=== PATIENT | male | born 1940 | race Caucasian/White ===

== ENCOUNTER → 2018-06-29 14:36 | Outpatient (CLI) | payer MEDICARE, SELFPAY ==
--- NOTE | 2018-06-29 14:49 | BD_ITS ---
STUDY: DUAL ENERGY X-RAY ABSORPTIOMETRY / DXA REASON FOR EXAM: Male, 78 years old. Loss of height. Vitamin D deficiency. TECHNIQUE: Bone Mineral Density (BMD) measurements of lumbar spine and bilateral hips were obtained. COMPARISON: Comparison is made with prior study dated April 25, 2010. FINDINGS: Lumbar Spine (L1-L4): g/cm2 (1.050) / T-score (-1.4) / Z-score (-0.8) Findings are suggestive of osteopenia with a moderate fracture risk. Increased thoracic kyphosis. Left Femur Total: g/cm2 (0.884) / T-score (-1.5) / Z-score (-0.6) Left Femoral Neck: g/cm2 (0.806) / T-score (-2.0) / Z-score (-0.6) Right Femur Total: g/cm2 (0.826) / T-score (-1.9) / Z-score (-1.0) Right Femoral Neck: g/cm2 (0.792) / T-score (-2.1) / Z-score (-0.7) The T-Scores on the most recent prior examination were: Lumbar Spine (L1-L4): There has been worsening of bone density since the previous examination. Left Femur Total: which represents a worsening of 9.2%. Right Femur Total: which represents a worsening of 17.3%. BD/Dexa Bone Density Study IMPRESSION: The patient is considered osteopenic as outlined below according to World [place] Organization (WHO) criteria with a moderate fracture risk. There has been worsening of bone density since the previous examination. Reference Information: The T-score is the number of standard deviations above or below the standard which is normal for young adults at their peak bone mineral density. The World Health Organization (WHO) interprets the T-scores as follows: Above -1 Normal bone density Between -1 and -2.5 Osteopenia Equal to / or below -2.5 Osteoporosis As a practical clinical guideline, osteopenia may be graded as follows: Mild -1 through -1.5 Moderate -1.6 through -2.0 Severe -2.1 through -2.4 The Z-score is the number of standard deviations above or below age-matched controls. A Z-score of less than -1.5 would be considered abnormal. References: 1. NIH Osteoporosis and Related Bone Diseases http://www.osteo.org 2. International Society for Clinical Densitometry http://www.iscd.org 3. National Osteoporosis Foundation http://www.nof.org Electronically Signed: Carlos Laura MD at 15:24 EDT Tel [phone], Service support ,
== END ==
PROVIDERS: Family Provider Family Medicine Geriatric Medicine; PCP Family Medicine Geriatric Medicine; Visit Provider Internal Medicine
DX: M85.89 Other specified disorders of bone density and structure, multiple sites (principal)
CPT/HCPCS: 77080

== ENCOUNTER 2023-01-22 16:38 | Inpatient (IN) | payer MEDICARE, SELFPAY ==
[2023-01-22 16:38] VITALS: BP 96/57; PULSE 59; RESP 16; TEMP 36.7; O2SAT 100; BMI 21.2
[2023-01-22] MEDS: 0.9% Normal Saline 1,000 ML 1000 ML IV (17:11)
[2023-01-22 17:48] LABS: Absolute Lymphocyte Count 0.18 X10^3/uL (0.83-4.51); Absolute Neutrophil Count 10.1 X10^3/uL (2.0-7.7); Basophil# 0.03 X10^3/uL; Basophil% 0.3 % (0-1); Hematocrit 39.8 % (40-54); Hemoglobin 13.1 g/dL (13.0-16.5); Lymphocyte # 0.18 X10^3/ul (0.83-4.51); Lymphocyte % 1.7 % (19-41); Mean Corp Hgb Conc 32.9 g/dL (32-36); Mean Corpuscular Hgb 32.1 pg (27.0-32.0); Mean Corpuscular Volume 97.5 fL (80-94); Mean Platelet Vol. 9.3 fl (6.2-12.0); Monocyte# 0.45 X10^3/uL; Monocyte% 4.2 % (0-10); NRBC Flagged by Analyzer 0 % (0-5); Neutrophil # 10.12 X10^3/uL (2.7-7.7); Neutrophil % 93.3 % (47-70); POSITIVE DIFFERENTIAL YES; Platelet Count 168 K/mm3 (150-450); RBC Distribution Width CV 13.2 % (11.6-14.6); RBC Distribution Width SD 46.4 fl (35.1-43.9); Red Blood Count 4.08 M/mm3 (4.6-6.2); White Blood Count 10.8 K/mm3 (4.4-11.0)
--- NOTE | 2023-01-22 18:31 | ED.VIS.GI ---
HPI HPI - GI History of Present Illness Chief Complaint: Abd Pain Narrative Narrative: 82-year-old male presenting with abdominal pain which started last evening. He states he felt it around his umbilical region. He states he felt like he was going to vomit but did not. Patient reports that he walked downstairs and felt to go to his right lower quadrant. He still has not vomited. He denies fever or chills. He denies constipation or diarrhea. No urinary complaints. Patient states that currently has no pain. Patient has not had any abdominal surgeries in the past. He does report that he had a hernia before. PFSH PFS Medical History no medical history Home Medications NK 01/22/23 [History Last Taken Unknown] Allergy/AdvReac Type Severity Reaction Status Date / Time No Known Allergies Allergy Verified 01/22/23 16:41 Social History (Updated 01/22/23 @ 22:[address] Thomas Stover MD) Smoking Status: Never smoker ROS ROS ED Constitutional Constitutional ED: Denies chills, fever(s) or subjective ENT ENT ED: Denies rhinorrhea or sore throat Cardiovascular Cardiovascular: Denies chest pain or palpitations Respiratory/Chest Respiratory/Chest: Denies cough or dyspnea Gastrointestinal Gastrointestinal: Reports abdominal pain and nausea; Denies constipation or diarrhea Genitourinary Genitourinary ED: Denies dysuria or hematuria Musculoskeletal Musculoskeletal: Denies arthralgias or back pain Integumentary Denies abscess or Abrasions Neurologic Neurologic: Denies headache(s) Psychiatric Psychiatric: Denies anxiety or depression Endocrine Endocrinology: Denies polydipsia EXAM Physical Exam Const Vital Signs: 01/22/23 16:38 01/22/23 21:09 Temperature 98.1 F Temperature Source Temporal Pulse Rate 59 L 53 L Respiratory Rate 16 16 Blood Pressure 96/57 L 115/51 L Blood Pressure Mean 70 72 Pulse Ox 100 99 Oxygen Delivery Method Room Air Room Air Positive unkempt General Appearance ED: unkempt and NAD; Negative for pallor HEENT Reports moist mucous membranes normocephalic and atraumatic Eyes PERRL and EOMs intact bilaterally Resp normal respiratory effort and clear to auscultation bilaterally GI non-tender, non-distended and no masses Palpation: soft Back/Spine no CVA tenderness Neuro CN's II-XII intact bilaterally and moves all extremities Sensorium / Orientation: alert Motor Exam: strength 5/5 throughout Psych mental status grossly normal and thought process normal Appearance: unkempt Skin no wounds General Skin Exam: Negative for jaundice or pallor MDM MDM MDM Narrative Medical decision making narrative: Patient presenting with abdominal pain and nausea however his abdominal pain and nausea have resolved. He was sent here from the urgent care for evaluation. Differential includes urinary tract infection, kidney stone, colitis, diverticulitis, bowel obstruction, appendicitis. Screening lab work will be obtained. CBC to assess white blood cell count, hemoglobin, platelets, differential. CMP to assess liver function, renal function, glucose, anion gap. Urinalysis to assess for UTI or hematuria. Patient is given a liter of normal saline. He declines analgesia or antiemetics. He is currently pain-free and has no nausea. CBC shows normal white blood cell count. Hemoglobin hematocrit are stable. Platelets are normal. Renal function and electrolytes unremarkable. Patient's total bilirubin is elevated 1.20, AST 415, ALT 301, lipase greater than 5000 urinalysis negative for infection. Clinically the picture looks like a gallstone pancreatitis however the patient is pain-free I did obtain a right upper quadrant ultrasound which does not show any gallstones does not show any dilated ducts or signs of cholecystitis or cholelithiasis. Discussed with Dr. Downing who recommended medicine admit and MRCP as well as repeat lab work. It does sound as if he possibly could have passed a stone. Patient has been pain-free the whole time has been here. Patient admitted to the hospitalist in stable condition. Impression: 1. Abdominal pain 2. Choledocholithiasis Lab Data Labs: Laboratory Results - last 24 hr 01/22/23 01/22/23 01/22/23 17:00 17:00 19:23 WBC 10.8 RBC 4.08 L Hgb 13.1 Hct 39.8 L MCV 97.5 H MCH 32.1 H MCHC 32.9 RDW Std Deviation 46.4 H RDW Coeff of Manan 13.2 Plt Count 168 MPV 9.3 Immature Gran % (Auto) 0.500 Neut % (Auto) 93.3 H Lymph % (Auto) 1.7 L [place] % (Auto) 4.2 Eos % (Auto) 0.0 Baso % (Auto) 0.3 Absolute Neuts (auto) 10.1 H Absolute Lymphs (auto) 0.18 L Nucleated RBC % 0 Differential Comment SEE COMMENT Platelet Estimate ADEQUATE RBC Morphology N CHROM Anisocytosis RARE Macrocytosis RARE Sodium 139 Potassium 4.3 Chloride 106 Carbon Dioxide 29.0 Anion Gap 4 L BUN 21 H Creatinine 0.84 Estim Creat Clear Calc 59.17 Est GFR (MDRD) Af Amer 113 Est GFR (MDRD) Non-Af 94 BUN/Creatinine Ratio 25.1 H Glucose 158 H Calcium 8.8 Total Bilirubin 1.20 H AST 415 H ALT 301 H Alkaline Phosphatase 110 Total Protein 6.8 Albumin 3.7 Globulin 3.1 Albumin/Globulin Ratio 1.2 Lipase > 5000 H Urine Color Yellow Urine Clarity Clear Urine pH 7.0 Ur Specific [place] 1.005 Urine Protein 15 H Urine Glucose (UA) Normal Urine Ketones Negative Urine Occult Blood Negative Urine Nitrite Negative Urine Bilirubin Negative Urine Urobilinogen 1 H Ur Leukocyte Esterase Negative Urine RBC 0 SEEN Urine WBC 0 SEEN Ur Squamous Epith Cells 0 SEEN Urine Bacteria 0 SEEN Urine Mucus 0 SEEN Radiography Diagnostic Testing: Clinical Impression(s) from Imaging Studies Gallbladder Ultrasound 01/22/23 19:19 IMPRESSION: There is an echogenic nodule in the right lobe of the liver. CT with IV is recommended to further evaluate. Note: Renal size measurements and size measurements of other organs etc may vary depending on modality and foot press operator dependent variations in measurements. (i.e. Measuring a kidney on an US does not correlate with an exact same measurement on a CT.) Electronically Signed: Mk Abreu MD at 20:35 EDT , Discharge Plan Triage Chief Complaint: Abd Pain ED Provider: Nazario Buck Dx/Rx/DC Orders Primary Care Provider: Espinoza Gottlieb Chi
[2023-01-22 18:36] LABS: Differential Indicated SCAN CRITERIA MET
[2023-01-22 18:37] LABS: Platelet Estimate ADEQUATE (ADEQ); Red Cell Morphology N CHROM NORMAL (NORM C&C)
[2023-01-22 18:38] LABS: Anisocytosis RARE; Macrocytosis RARE
[2023-01-22] MEDS: 0.9% Normal Saline 1,000 ML 999 ML IV (18:53)
[2023-01-22 19:11] LABS: ALB/GLOB Ratio 1.2 RATIO (0.9-2.4); AST(SGOT) 415 U/L (15-37); Alanine Aminotransfer ALT/SGPT 301 U/L (16-61); Albumin, Serum 3.7 g/dL (3.2-5.0); Alkaline Phosphatase 110 U/L (45-117); Anion Gap 4 (5-15); BUN 21 mg/dL (7-18); BUN/Creat Ratio 25.1 RATIO (10-20); Calcium,Total 8.8 mg/dL (8.5-10.1); Chloride 106 mmol/L (98-107); Creatinine, Serum 0.84 mg/dL (0.70-1.30); EST Glomerular Filtration Rate 94 mL/min (>60); Est Glom Filt Rate - Afr Amer 113 mL/min (>60); Estimated Creatinine Clearance 59.17 ml/min; Globulin 3.1 g/dL (2.2-4.2); Glucose 158 mg/dL (74-106); Lipase > 5000 U/L (13-75); Potassium 4.3 mmol/L (3.5-5.1); Protein, Total 6.8 g/dL (6.4-8.2); Sodium Level 139 mmol/L (136-145)
--- NOTE | 2023-01-22 19:19 | US_ITS ---
STUDY: ABDOMINAL ULTRASOUND - RIGHT UPPER QUADRANT REASON FOR VISIT: Male, 82 years old. ABDOMEN PAIN abdominal pain TECHNIQUE: Ultrasound evaluation of the right upper quadrant was performed with real-time and static de anda-scale imaging. TECHNICAL QUALITY: Adequate. COMPARISON: None FINDINGS: Liver: There is normal echogenicity of the liver. The bile ducts are within normal limits. There is hepatic color flow. The direction of portal flow is hepatopetal. There is an echogenic nodule in the right lobe of the liver measures 18mm. Gallbladder: Normal distended gallbladder. The gallbladder wall measures 1.6 mm. There is a negative sonographic Lu''s sign. There is no pericholecystic fluid. There are no gallstones. Common Bile Duct (C.B.D.): The common bile duct measures ( in mm): 6.4 Pancreas: Normal size of the head, body of the pancreas. There is normal echogenicity of the pancreas. There is no demonstrated pancreatic mass or cyst. Right Kidney: Normal size of the right kidney. The right kidney measures 9.2 cm. . Normal renal cortex. There is no demonstrated renal mass or cyst. There is an extra-renal pelvis of the right kidney. There is no distention of the renal calyces. Aorta: It is not visualized. There is too much overlying bowel gas. . US/Gallbladder IMPRESSION: There is an echogenic nodule in the right lobe of the liver. CT with IV is recommended to further evaluate. Note: Renal size measurements and size measurements of other organs etc may vary depending on modality and cage operator dependent variations in measurements. (i.e. Measuring a kidney on an US does not correlate with an exact same measurement on a CT.) Electronically Signed: Mk Abreu MD at 20:35 EDT ,
--- NOTE | 2023-01-22 19:27 | ED.RN ---
hospice called and made aware of patient at this time. chart faxed at this time. they will attempt to send some one over if they can to see patient. Dr. De La Torre made aware and spoke to hospice
[2023-01-22 19:29] LABS: Bacteria 0 SEEN /hpf (None Seen); Mucous, Urine 0 SEEN /hpf (<or=2+); Red Blood Cells-Urine 0 SEEN /hpf (0-5); Squamous Epithelial Cells - UA 0 SEEN /hpf (0-5); White Blood Cells 0 SEEN /hpf (0-5)
[2023-01-22 19:30] LABS: Glucose, Dipstick Normal (Normal); Ketone-Dipstick Negative (Negative); Leukocyte Esterase-Dipstick Negative /ul (Negative); Nitrite-Dipstick Negative (Negative); Occult Blood-Urine Negative /ul (Negative); Protein-Dipstick 15 mg/dl (Negative); Specific Gravity, Urine 1.005 (1.002-1.030); Urine Bilirubin Dipstick Negative (Negative); Urine Urobilinogen 1 mg/dl (Normal)
--- NOTE | 2023-01-22 19:34 | CM.ED ---
Social Work SW introduced self and role. SW discussed advance directives with patient and sister, Claudette Lu. Patient reports he would like to have his sister be his HCPOA and requested to complete paperwork today. SW assisted patient in completing Healthcare Power of Facility Service Manager and Living Will documents. Copies and original given to patient and copy placed with chart to be scanned into medical record. Batsheva Reyez [employer]
[2023-01-22 19:36] LABS: Color, Urine Yellow (Yellow); Urine Clarity Clear (Clear)
[2023-01-22 21:09] VITALS: BP 115/51; PULSE 53; RESP 16; O2SAT 99
--- NOTE | 2023-01-22 22:02 | PCM.HP.STD ---
HPI - General General Date of Admission: 01/22/23 Date of Service: 01/22/23 Chief Complaint: Abdominal pain HPI Narrative DENNISE NUNEZ, is a 82 M with no significant medical history who presents emergency department with abdominal pain that started a day before presentation. History was difficult to obtain as patient is extremely hard of hearing. His abdominal pain was initially periumbilical but is localized to the right lower quadrant. His pain started a day before presentation. Associated with symptom is nausea. His nausea and abdominal pain improved. [facility] Medical History no medical history no medical history Home Medications NK 01/22/23 [History Last Taken Unknown] Allergy/AdvReac Type Severity Reaction Status Date / Time No Known Allergies Allergy Verified 01/22/23 16:41 Family History unable to obtain unable to obtain Surgical History (Updated 01/23/23 @ 00:00 by Delmis Ayers) History of tonsillectomy Surgical History no surgical history no surgical history Social History (Updated 01/22/23 @ 22:[address] Thomas Stover MD) Smoking Status: Never smoker ROS ROS Narrative Pertinent positives and pertinent negatives as noted in HPI. All other systems were reviewed and are negative Vital Signs Vital Signs Vital Signs: 01/22/23 16:38 01/22/23 21:09 Temperature 98.1 F Temperature Source Temporal Pulse Rate 59 L 53 L Respiratory Rate 16 16 Blood Pressure 96/57 L 115/51 L Blood Pressure Mean 70 72 Pulse Ox 100 99 Oxygen Delivery Method Room Air Room Air Weight Weight: 59.647 kg Body Mass Index (BMI) 21.2 Physical Exam Narrative Physical exam: General: Well-nourished, well-developed. Head: Normocephalic, atraumatic, no tenderness Eyes: Vision is grossly intact. EOMI ENT, no trauma, moist mucous membranes, no rhinorrhea Neck: Nontender, No thyromegaly. CVS: Regular rate and rhythm. S1-S2 present. No murmur, gallop or rub. Respiratory : clear to auscultation bilaterally, chest wall nontender Abdomen: Soft, nontender, nondistended, normal bowel sounds, no masses : Deferred Back: Nontender, no CVA tenderness, no midline spinal tenderness, deformities, step-offs Extremities: Nontender full range of motion, no trauma Skin: Normal color, no trauma, abrasions Neuro: Alert, oriented, cranial nerves II through XII grossly intact. Psychiatry: Normal mood. Normal affect. Not depressed. Not anxious. Results Lab / Micro Data Result Diagrams: 01/22/23 17:00 01/22/23 17:00 Labs: Laboratory Results - last 24 hr 01/22/23 17:00: WBC 10.8, RBC 4.08 L, Hgb 13.1, Hct 39.8 L, MCV 97.5 H, MCH 32.1 H, MCHC 32.9, RDW Std Deviation 46.4 H, RDW Coeff of Manan 13.2, Plt Count 168, MPV 9.3, Immature Gran % (Auto) 0.500, Neut % (Auto) 93.3 H, Lymph % (Auto) 1.7 L, [place] % (Auto) 4.2, Eos % (Auto) 0.0, Baso % (Auto) 0.3, Absolute Neuts (auto) 10.1 H, Absolute Lymphs (auto) 0.18 L, Nucleated RBC % 0, Differential Comment SEE COMMENT, Platelet Estimate ADEQUATE, RBC Morphology N CHROM, Anisocytosis RARE, Macrocytosis RARE 01/22/23 17:00: Sodium 139, Potassium 4.3, Chloride 106, Carbon Dioxide 29.0, Anion Gap 4 L, BUN 21 H, Creatinine 0.84, Estim Creat Clear Calc 59.17, Est GFR (MDRD) Af Amer 113, Est GFR (MDRD) Non-Af 94, BUN/Creatinine Ratio 25.1 H, Glucose 158 H, Calcium 8.8, Total Bilirubin 1.20 H, AST 415 H, ALT 301 H, Alkaline Phosphatase 110, Total Protein 6.8, Albumin 3.7, Globulin 3.1, Albumin/Globulin Ratio 1.2, Lipase > 5000 H 01/22/23 19:23: Urine Color Yellow, Urine Clarity Clear, Urine pH 7.0, Ur Specific [place] 1.005, Urine Protein 15 H, Urine Glucose (UA) Normal, Urine Ketones Negative, Urine Occult Blood Negative, Urine Nitrite Negative, Urine Bilirubin Negative, Urine Urobilinogen 1 H, Ur Leukocyte Esterase Negative, Urine RBC 0 SEEN, Urine WBC 0 SEEN, Ur Squamous Epith Cells 0 SEEN, Urine Bacteria 0 SEEN, Urine Mucus 0 SEEN Radiology Impression Gallbladder Ultrasound 01/22/23 19:19 IMPRESSION: There is an echogenic nodule in the right lobe of the liver. CT with IV is recommended to further evaluate. Note: Renal size measurements and size measurements of other organs etc may vary depending on modality and oil heater operator dependent variations in measurements. (i.e. Measuring a kidney on an US does not correlate with an exact same measurement on a CT.) Electronically Signed: Mk Abreu MD at 20:35 EDT , Assessment & Plan Assessment/Plan (1) Pancreatitis, gallstone: PLAN: Plan Acute pancreatitis Lipase level: More than 5000 Elevated AST and ALT and total bilirubin with alkaline phosphatase high normal. Lactated Ringer's at 125 MLS per hour ordered. Cautious use of fluids in the setting of patient's age Patient has not required pain medications Clear liquids ordered. Per recommendation from general surgery detailed to ED doctor will order MRCP. General surgery consult. Ultrasound gallbladder showed echogenic nodule in the right lobe of the liver and for which CT with IV was recommended for further evaluation. With ordered MRCP we will await for results before CT consideration Check acute hepatitis panel. Trend CMP. Total clinical time spent by myself addressing the patient's medical issues, reviewing all the data, and collaborating with the patient's care team: 35 minutes Charges/Coding Visit Charges Inpatient E&M: 92291 Init Hosp L2
[2023-01-22 22:27] VITALS: BP 103/68; PULSE 81; RESP 12; TEMP 36.1; O2SAT 99
[2023-01-22 23:37] VITALS: BP 103/48; PULSE 53; RESP 18; TEMP 36.6; O2SAT 94; BMI 103.3
[2023-01-23] MEDS: Lactated Ringers 1,000 ML 125 ML IV ×2 (00:23→08:31)
[2023-01-23 04:30] VITALS: BP 105/39; PULSE 51; RESP 18; TEMP 36.8; O2SAT 95
--- NOTE | 2023-01-23 06:00 | MRI_ITS ---
HISTORY: Biliary stone- Pt VERY hard of hearing!. TECHNIQUE: Multiplanar and multisequence MR images of the abdomen were obtained with MRCP sequence. Three-dimensional post-processing reconstructions were performed. IV Contrast Dosage and Agent: None. 300 images. COMPARISON: US prior day. FINDINGS: Motion artifact lowers the sensitivity of examination. LOWER CHEST: No pleural effusion. LIVER: 2.2 x 2.5 cm homogeneously mildly T2 hyperintense and circumscribed lesion in segment 7. GALLBLADDER AND BILIARY TREE: Mild gallbladder wall thickening and edema without gallstones. Possible mild sludge versus artifact. Common bile duct nondilated at 5 mm in diameter. No intrahepatic biliary dilation. No choledochal filling defect. PANCREAS: Homogeneous without peripancreatic inflammation. No pancreatic duct dilation. SPLEEN: Homogeneous and nonenlarged. KIDNEYS/ADRENAL GLANDS: Unremarkable. PERITONEUM: Trace perihepatic free fluid VESSELS: Abdominal aorta nondilated. MRI/MRCP Abdomen without Contrast IMPRESSION: 2.5 cm lesion in the right hepatic lobe, indeterminate for benign lesion or neoplasm on noncontrast examination. Recommend follow-up postcontrast imaging. Gallbladder wall edema and mild perihepatic ascites. Possible mild biliary sludge versus artifact. No evidence of cholelithiasis, choledocholithiasis, or biliary ductal dilatation. Electronically Signed: Crystal Huff MD at 12:20 EDT ,
[2023-01-23 06:38] VITALS: BP 98/36
[2023-01-23 07:36] LABS: Absolute Lymphocyte Count 0.55 X10^3/uL (0.83-4.51); Basophil# 0.03 X10^3/uL; Basophil% 0.4 % (0-1); Eosinophil# 0.02 X10^3/uL; Eosinophils% 0.2 % (0-5); Hematocrit 33.7 % (40-54); Hemoglobin 10.9 g/dL (13.0-16.5); Lymphocyte # 0.55 X10^3/ul (0.83-4.51); Lymphocyte % 6.7 % (19-41); Mean Corp Hgb Conc 32.3 g/dL (32-36); Mean Corpuscular Hgb 32.4 pg (27.0-32.0); Mean Corpuscular Volume 100.3 fL (80-94); Mean Platelet Vol. 9.9 fl (6.2-12.0); Monocyte% 7.3 % (0-10); NRBC Flagged by Analyzer 0 % (0-5); Neutrophil # 7.01 X10^3/uL (2.7-7.7); POSITIVE DIFFERENTIAL YES; Platelet Count 138 K/mm3 (150-450); RBC Distribution Width CV 13.2 % (11.6-14.6); RBC Distribution Width SD 48.3 fl (35.1-43.9); Red Blood Count 3.36 M/mm3 (4.6-6.2); White Blood Count 8.2 K/mm3 (4.4-11.0)
[2023-01-23 07:42] LABS: Differential Indicated SCAN CRITERIA MET
[2023-01-23 08:07] LABS: ALB/GLOB Ratio 1.2 RATIO (0.9-2.4); AST(SGOT) 130 U/L (15-37); Alanine Aminotransfer ALT/SGPT 193 U/L (16-61); Albumin, Serum 2.9 g/dL (3.2-5.0); Alkaline Phosphatase 93 U/L (45-117); Anion Gap 4 (5-15); BUN 17 mg/dL (7-18); BUN/Creat Ratio 24.5 RATIO (10-20); Calcium,Total 8.3 mg/dL (8.5-10.1); Chloride 113 mmol/L (98-107); Creatinine, Serum 0.69 mg/dL (0.70-1.30); EST Glomerular Filtration Rate 116 mL/min (>60); Est Glom Filt Rate - Afr Amer 141 mL/min (>60); Estimated Creatinine Clearance 50.01 ml/min; Globulin 2.4 g/dL (2.2-4.2); Glucose 75 mg/dL (74-106); Potassium 3.7 mmol/L (3.5-5.1); Protein, Total 5.3 g/dL (6.4-8.2); Sodium Level 143 mmol/L (136-145)
[2023-01-23 08:21] VITALS: BP 90/46; PULSE 54; RESP 16; TEMP 36.7; O2SAT 97
--- NOTE | 2023-01-23 08:27 | CON.PCM.SX_ITS ---
Assessment & Plan Assessment/Plan (1) Pancreatitis, gallstone: PLAN: Patient was admitted with possible gallstone pancreatitis with the patient has no gallstones. Repeat LFTs are decreasing. I recommend MRCP. If MRCP is normal patient can be discharged home. Unsure as to etiology if there are no gallstones. Nilton Devlin MD Pager: [facility] [address] [place] [address], [address] [place] [address] Office: HPI Consult Data Date of Consult: 01/23/23 HPI Narrative HPI Narrative: DENNISE NUNEZ, is a 82 M who presents with abdominal pain. Patient presented with abdominal pain that resolved during his ER visit. Patient was found to have elevated lipase and elevated LFTs. Patient now reports no abdominal pain or nausea or vomiting. He is very comfortable with no symptoms at this time. [facility] Medical History no medical history Home Medications NK 01/22/23 [History Last Taken Unknown] Allergy/AdvReac Type Severity Reaction Status Date / Time No Known Allergies Allergy Verified 01/22/23 16:41 Family History unable to obtain Surgical History (Updated 01/23/23 @ 00:00 by Delmis Ayers) History of tonsillectomy Surgical History no surgical history Social History (Updated 01/22/23 @ 22:[address] Thomas Stover MD) Smoking Status: Never smoker ROS Constitutional Constitutional: Denies anorexia, chills or fatigue Eyes Eyes: Denies blurry vision ENT HEENT: Denies abnormal hearing Cardiovascular Cardiovascular: Denies chest pain Respiratory/Chest Respiratory/Chest: Denies cough or dyspnea Gastrointestinal Gastrointestinal: Reports abdominal pain; Denies coffee ground emesis, nausea or vomiting Genitourinary Genitourinary: Denies change in urinary stream or flank pain Musculoskeletal Musculoskeletal: Denies abnormal gait Integumentary Integumentary: Denies new lesions Neurologic Neurologic: Denies abnormal gait Psychiatric Psychiatric: Denies anxiety or depression Hematologic/Lymphatic Hematologic/Lymphatic: Denies easy bleeding Physical Exam Const alert and oriented x3 HEENT normocephalic Eyes PERRL Resp normal respiratory effort Cardio Rate: regular rate Rhythm: regular rhythm GI normal to inspection, nondistended, normoactive bowel sounds Lab / Micro Data Result Diagrams: 01/23/23 06:35 05/12/23 06:35 Labs: Laboratory Results - last 24 hr 01/22/23 17:00: WBC 10.8, RBC 4.08 L, Hgb 13.1, Hct 39.8 L, MCV 97.5 H, MCH 32.1 H, MCHC 32.9, RDW Std Deviation 46.4 H, RDW Coeff of Manan 13.2, Plt Count 168, MPV 9.3, Immature Gran % (Auto) 0.500, Neut % (Auto) 93.3 H, Lymph % (Auto) 1.7 L, [place] % (Auto) 4.2, Eos % (Auto) 0.0, Baso % (Auto) 0.3, Absolute Neuts (auto) 10.1 H, Absolute Lymphs (auto) 0.18 L, Nucleated RBC % 0, Differential Comment SEE COMMENT, Platelet Estimate ADEQUATE, RBC Morphology N CHROM, Anisocytosis RARE, Macrocytosis RARE 01/22/23 17:00: Sodium 139, Potassium 4.3, Chloride 106, Carbon Dioxide 29.0, Anion Gap 4 L, BUN 21 H, Creatinine 0.84, Estim Creat Clear Calc 59.17, Est GFR (MDRD) Af Amer 113, Est GFR (MDRD) Non-Af 94, BUN/Creatinine Ratio 25.1 H, Glucose 158 H, Calcium 8.8, Total Bilirubin 1.20 H, AST 415 H, ALT 301 H, Alkaline Phosphatase 110, Total Protein 6.8, Albumin 3.7, Globulin 3.1, Albumin/Globulin Ratio 1.2, Lipase > 5000 H 01/22/23 19:23: Urine Color Yellow, Urine Clarity Clear, Urine pH 7.0, Ur Specific [place] 1.005, Urine Protein 15 H, Urine Glucose (UA) Normal, Urine Ketones Negative, Urine Occult Blood Negative, Urine Nitrite Negative, Urine Bilirubin Negative, Urine Urobilinogen 1 H, Ur Leukocyte Esterase Negative, Urine RBC 0 SEEN, Urine WBC 0 SEEN, Ur Squamous Epith Cells 0 SEEN, Urine Bacteria 0 SEEN, Urine Mucus 0 SEEN 01/23/23 06:35: WBC 8.2, RBC 3.36 L, Hgb 10.9 L, Hct 33.7 L, MCV 100.3 H, MCH 32.4 H, MCHC 32.3, RDW Std Deviation 48.3 H, RDW Coeff of Manan 13.2, Plt Count 138 L, MPV 9.9, Immature Gran % (Auto) 0.400, Neut % (Auto) 85.0 H, Lymph % (Auto) 6.7 L, [place] % (Auto) 7.3, Eos % (Auto) 0.2, Baso % (Auto) 0.4, Absolute Neuts (auto) 7.0, Absolute Lymphs (auto) 0.55 L, Nucleated RBC % 0 01/23/23 06:35: Sodium 143, Potassium 3.7, Chloride 113 H, Carbon Dioxide 26.0, Anion Gap 4 L, BUN 17, Creatinine 0.69 L, Estim Creat Clear Calc 50.01, Est GFR (MDRD) Af Amer 141, Est GFR (MDRD) Non-Af 116, BUN/Creatinine Ratio 24.5 H, Glucose 75, Calcium 8.3 L, Total Bilirubin 0.70, AST 130 H, ALT 193 H, Alkaline Phosphatase 93, Total Protein 5.3 L, Albumin 2.9 L, Globulin 2.4, Albumin/Globulin Ratio 1.2 Radiology Impression Gallbladder Ultrasound 01/22/23 19:19 IMPRESSION: There is an echogenic nodule in the right lobe of the liver. CT with IV is recommended to further evaluate. Note: Renal size measurements and size measurements of other organs etc may vary depending on modality and drying frame operator dependent variations in measurements. (i.e. Measuring a kidney on an US does not correlate with an exact same measurement on a CT.) Electronically Signed: Mk Abreu MD at 20:35 EDT ,
[2023-01-23 08:30] VITALS: O2SAT 96
--- NOTE | 2023-01-23 11:00 | CASEMGMT ---
RN?CM?INTERIOR DESIGN FACULTY MEMBER?CM?to room to meet with patient for initial transition planning/care coordination?assessment.?RN?CM?introduced self and role at [facility].? Pt voices understanding and consents to?assessment?at this time.? Pt resting in bed in no distress at this time.? Sister/Claudette WOLF, is at bedside. Pt is A/O at this time and answers all questions appropriately.?? Care providers, pharmacy, and demographics verified/updated at this time. PCP: Dr Gottlieb is listed in [facility] as being pt's PCP, but pt states he does not see Dr Gottlieb. He reports he sees a PCP @ [facility] in [place], but does not remember his name. He state he has not been in to see him for about 2-3 yrs, though, d/t COVID. Mindy, MS3 RN CM, made aware. Specialists: none Preferred Pharmacy: [facility] Insurance: [facility] A/B Prescription Benefit: None? Living Will/HPOA:?Pt completed AD last PM w/[facility] SW and pt's sister, Claudette, is his HCPOA. LNOK: Sister/Claudette WOLF Living Arrangements: Lives alone in 2-story home w/1 step to enter. Indep w/ADL's and IADL's. Transportation:?Pt drives. Sister will take him home @ D/C DME: ? Denies using any DME and denies needs.? HHC/SNF: No hx of either. Denies need for HHC and no needs identified. 6-clicks is 24, indicating pt is safe to discharge home alone. Pt wishes to return home and states has no concerns with going home at time of discharge.? CM?to follow for any further discharge planning/needs.? Pt and sister voice no concerns/needs at this time.? Advised pt and sister to ask for?CM?if any questions/concerns/needs arise.? They voice understanding. PLAN:??Home. Nereyda NÚÑEZN?RN?CM
--- NOTE | 2023-01-23 11:54 | DCINST_ITS ---
Discharge Instructions Diet Discharge Diet: No restrictions Activity Discharge Activity: Return to Normal Activity Weight Bearing Status: Full weight bearing Follow Up Care Test Results: Test results from this visit will be discussed in further detail at your follow- up appointment, if applicable. Discharge Plan Admission Admit Date/Time: 01/22/23 21:56 Primary Reason for Your Visit: pancreatitis Attending Provider: Danielito Owens Primary Care Provider: Espinoza Gottlieb Chi Consulting Providers: Nilton Devlin ; Thomas Stover Discharge Orders/Prescriptions Prescriptions: No Action NK Referrals / Follow Up: Espinoza Gottlieb Chi, MD [Primary Care Provider] - Within 2 Weeks Disposition Disposition (needs filled in before D/C Order can be placed): Home, Self Care
--- NOTE | 2023-01-23 12:46 | CASEMGMT ---
OWEN WALTON made tc to [facility], spoke with Latanya who states pt was dc'd from the practice since he hasn't been seen in 3 years. She states the physician who is accepting pts is . OWEN WALTON into pt room, made pt aware of the above. He is interested in setting up appt and states he and his will do on own. Physician name and number added to dc instructions.
--- NOTE | 2023-01-23 12:56 | CT_ITS ---
HISTORY: liver mass -- triple phase-abdomen. TECHNIQUE: Helically acquired images were obtained of the abdomen and pelvis before and after the intravenous administration of 100mL Isovue-370. Oral contrast also administered. A radiation dose optimization technique was used for this scan. 565 images. COMPARISON: MR same day, US prior day. FINDINGS: Motion artifact lowers the sensitivity of examination. LOWER CHEST: Mild dependent atelectasis with mild bilateral pleural effusions. BOWEL: Bowel nondilated. Appendix not well visualized. Moderate stool throughout the colon, mildly distending the rectum. PERITONEUM: Mild perihepatic ascites. Trace fluid in the pelvis. LIVER: Calcified granulomas. 2.1 x 2.4 cm hypoenhancing lesion in the right posterior lobe with mild peripheral enhancement. 7 mm cyst in the left medial lobe. GALLBLADDER/BILIARY TREE: 7 mm calcified gallstone with mild gallbladder wall thickening. SPLEEN: Calcified granulomas. PANCREAS/KIDNEYS/ADRENAL GLANDS: Unremarkable. VESSELS: No abdominal aortic aneurysm. Atherosclerosis of the abdominal aorta and its major branches appear PELVIC ORGANS: Unremarkable. ABDOMINAL WALL: Moderate right inguinal hernia containing cecum, small bowel, and free fluid with extension into the scrotum. Mild left inguinal hernia containing small bowel. BONES: Mild degenerative change and osteopenia. CT/CT Abd/Pelvis W/WO Contrast IMPRESSION: Anasarca with mild pleural effusions and mild ascites. Cholelithiasis with mild gallbladder wall edema from acute cholecystitis or generalized edema. Large right inguinal hernia containing cecum and small bowel without evidence for bowel obstruction. Appendix not well visualized. Right inguinal hernia extends into the scrotum with free fluid or hydrocele. Correlate with focal symptoms to assess for strangulation. Small left inguinal hernia containing small bowel without evidence for small bowel obstruction. Moderate stool throughout the colon with mild distention of the rectum. 2.4 cm indeterminate mass in the right hepatic lobe. Recommend follow-up. Small cyst in the left hepatic lobe. Electronically Signed: Crystal Huff MD at 15:31 EDT ,
--- NOTE | 2023-01-23 16:06 | PCM.DC ---
Discharge Instructions Diet Discharge Diet: No restrictions Activity Discharge Activity: Return to Normal Activity and May Not Drive Weight Bearing Status: Full weight bearing Follow Up Care Test Results: Test results from this visit will be discussed in further detail at your follow-up appointment, if applicable. Discharge Plan Admission Admit Date/Time: 01/22/23 21:56 Primary Reason for Your Visit: pancreatitis Attending Provider: Danielito Owens Primary Care Provider: Espinoza Gottlieb Chi Consulting Providers: Nilton Devlin ; Thomas Stover Discharge Orders/Prescriptions Prescriptions: No Action NK Referrals / Follow Up: Espinoza Gottlieb Chi, MD [Primary Care Provider] - Within 2 Weeks Emigdio Fuller MD [Med Staff - Injection Wax Molder] - See Referral Note (within 3 weeks) Nilton Devlin MD [Med Staff - Active Staff] - See Referral Note (as scheduled) Disposition Disposition (needs filled in before D/C Order can be placed): Home, Self Care
--- NOTE | 2023-01-23 16:14 | DS.PCM_ITS ---
Providers Date of Admission: 01/22/23 Date of Discharge: 01/23/23 Primary Care Physician: Dr. Espinoza Gottlieb MD Consultations 01/22/23 23:37 Consult: General Surgery Routine Consulting Provider: Nilton Devlin Reason for Consult: Gall Stone Pancreatitis EMERGENT Consult: No MD Notified: Yes Date Notified: 01/22/23 Time Notified: 22:00 Method of Notification: ED Physician Initiated Reason For Visit: ACUTE GALLSTONE PANCREATITIS Diagnosis Discharge Diagnosis (1) Pancreatitis, gallstone: Status: Acute Code(s): K85.10 - Biliary acute pancreatitis without necrosis or infection Plan 1. Acute gallstone pancreatitis #2 cholelithiasis #3 chronic cognitive impairment-probable dementia #4 acute anemia-etiology unclear #5 elevated liver enzymes-secondary to gallstone pancreatitis #6 solitary liver mass-etiology unclear Medications at Discharge Home Medications NK 01/22/23 Hospital Course Operations None Procedures None Summary of Care Provided Minutes Spent on Discharge: 32 Hospital Course: This 82-year-old white male was seen in the emergency room at [facility] with complaints of generalized abdominal pain around his umbilical region, patient complained of nausea, however by the time he got to the emergency room, his abdominal pain and nausea had resolved. Patient was sent in from urgent care for evaluation. Lab work was performed on the patient, white blood cell count was normal, bilirubin was elevated at 1.2, AST was elevated at 415, ALT was elevated at 301, and lipase was greater than 5000. A right upper quadrant abdominal ultrasound was obtained which did not show any gallstones and there was no evidence of dilated ducts or signs of cholecystitis or cholelithiasis. General surgery was contacted, they recommended admitting to the hospitalist service and obtaining an MRCP as well as repeat lab work. Patient was admitted to [place] [address] with a diagnosis of gallstone pancreatitis, he underwent an MRCP the following day which showed a solitary liver mass, there is no evidence of dilated ducts or ductal lithiasis. I then ordered a triple phase CT of the abdomen to try to identify the liver mass as a hemangioma, however, this was not able to be confirmed and I talked personally with the reading radiologist about the report, she stated that she was not able to identify w hether it was benign or potentially cancerous. She did say that the patient did have a solitary gallstone 7 mm in diameter. I talked at length with the patient's sister-patient has a history of chronic cognitive impairment-his sister thinks that it could be secondary to Alzheimer's disease. I told her about this liver mass and that we were not able to characterize it with imaging studies here and that the patient will have to undergo an MRI of the abdomen with contrast, this could be done in follow-up with his primary care physician, she stated that the patient had not seen his primary care physician approximately 3 years and they would have to reestablish as a new patient at the [facility]. I urged her to follow-up with a PCP there in the next 2 to 3 weeks regarding follow-up on this liver mass. I also talked with Dr. Devlin concerning the CT results indicating that the patient did have a gallstone, he stated he would follow-up with the patient in 1 to 2 weeks in the office and arrange for the patient to have his gallbladder taken out. I relayed this to the patient's sister. I also had a discussion with the patient's sister about the patient not being able to drive due to his cognitive impairment. I cautioned against allowing him to drive. On 01/23/2023, patient was seen and examined: On examination he appeared in good health and spirits. Vital signs as documented. Skin warm and dry and without overt rashes. Neck without JVD, neck was supple, trachea midline, thyroid was normal. Lungs clear bilaterally, normal air movement was noted. Heart exam notable for regular rhythm, normal sounds and absence of murmurs, rubs or gallops. Abdomen unremarkable and without evidence of organomegaly, masses, or abdominal aortic enlargement. Bowel sounds are present, abdomen is not distended. Extremities nonedematous, no cyanosis was noted, no clubbing was noted. Neuro: Cranial nerves II through XII are grossly intact, no focal motor deficits were noted, sensation to light touch and pinprick intact, motor exam 5/5 throughout. Psych: Patient is alert, patient shows signs of cognitive impairment, he is able to answer simple questions appropriately. Patient was discharged in stable condition on 01/23/2023. Weight / BMI Weight Weight: 60.01 kg Body Mass Index (BMI) 103.3 ABG / Lab / Microbiology Data Result Diagrams: 01/23/23 06:35 01/23/23 06:35 Laboratory: Laboratory Results - last 24 hr 01/22/23 17:00: WBC 10.8, RBC 4.08 L, Hgb 13.1, Hct 39.8 L, MCV 97.5 H, MCH 32.1 H, MCHC 32.9, RDW Std Deviation 46.4 H, RDW Coeff of Manan 13.2, Plt Count 168, MPV 9.3, Immature Gran % (Auto) 0.500, Neut % (Auto) 93.3 H, Lymph % (Auto) 1.7 L, [place] % (Auto) 4.2, Eos % (Auto) 0.0, Baso % (Auto) 0.3, Absolute Neuts (auto) 10.1 H, Absolute Lymphs (auto) 0.18 L, Nucleated RBC % 0, Differential Comment SEE COMMENT, Platelet Estimate ADEQUATE, RBC Morphology N CHROM, Anisocytosis RARE, Macrocytosis RARE 01/22/23 17:00: Sodium 139, Potassium 4.3, Chloride 106, Carbon Dioxide 29.0, Anion Gap 4 L, BUN 21 H, Creatinine 0.84, Estim Creat Clear Calc 59.17, Est GFR (MDRD) Af Amer 113, Est GFR (MDRD) Non-Af 94, BUN/Creatinine Ratio 25.1 H, Glucose 158 H, Calcium 8.8, Total Bilirubin 1.20 H, AST 415 H, ALT 301 H, Alkaline Phosphatase 110, Total Protein 6.8, Albumin 3.7, Globulin 3.1, Albumin/Globulin Ratio 1.2, Lipase > 5000 H 01/22/23 19:23: Urine Color Yellow, Urine Clarity Clear, Urine pH 7.0, Ur Specific Vesper 1.005, Urine Protein 15 H, Urine Glucose (UA) Normal, Urine Ketones Negative, Urine Occult Blood Negative, Urine Nitrite Negative, Urine Bilirubin Negative, Urine Urobilinogen 1 H, Ur Leukocyte Esterase Negative, Urine RBC 0 SEEN, Urine WBC 0 SEEN, Ur Squamous Epith Cells 0 SEEN, Urine Bacteria 0 SEEN, Urine Mucus 0 SEEN 01/23/23 06:35: WBC 8.2, RBC 3.36 L, Hgb 10.9 L, Hct 33.7 L, MCV 100.3 H, MCH 32.4 H, MCHC 32.3, RDW Std Deviation 48.3 H, RDW Coeff of Manan 13.2, Plt Count 138 L, MPV 9.9, Immature Gran % (Auto) 0.400, Neut % (Auto) 85.0 H, Lymph % (Auto) 6.7 L, [place] % (Auto) 7.3, Eos % (Auto) 0.2, Baso % (Auto) 0.4, Absolute Neuts (auto) 7.0, Absolute Lymphs (auto) 0.55 L, Nucleated RBC % 0 01/23/23 06:35: Sodium 143, Potassium 3.7, Chloride 113 H, Carbon Dioxide 26.0, Anion Gap 4 L, BUN 17, Creatinine 0.69 L, Estim Creat Clear Calc 50.01, Est GFR (MDRD) Af Amer 141, Est GFR (MDRD) Non-Af 116, BUN/Creatinine Ratio 24.5 H, Glucose 75, Calcium 8.3 L, Total Bilirubin 0.70, AST 130 H, ALT 193 H, Alkaline Phosphatase 93, Total Protein 5.3 L, Albumin 2.9 L, Globulin 2.4, Alb umin/Globulin Ratio 1.2 Radiography Diagnostic Testing: Radiology Impression Gallbladder Ultrasound 01/22/23 19:19 IMPRESSION: There is an echogenic nodule in the right lobe of the liver. CT with IV is recommended to further evaluate. Note: Renal size measurements and size measurements of other organs etc may vary depending on modality and minilab operator dependent variations in measurements. (i.e. Measuring a kidney on an US does not correlate with an exact same measurement on a CT.) Electronically Signed: Mk Abreu MD at 20:35 EDT , MRCP 01/23/23 06:00 IMPRESSION: 2.5 cm lesion in the right hepatic lobe, indeterminate for benign lesion or neoplasm on noncontrast examination. Recommend follow-up postcontrast imaging. Gallbladder wall edema and mild perihepatic ascites. Possible mild biliary sludge versus artifact. No evidence of cholelithiasis, choledocholithiasis, or biliary ductal dilatation. Electronically Signed: Crystal Huff MD at 12:20 EDT Reading Location ID and State: [facility] / [place] Tel , Service support , Abdomen/Pelvis CT 01/23/23 12:56 IMPRESSION: Anasarca with mild pleural effusions and mild ascites. Cholelithiasis with mild gallbladder wall edema from acute cholecystitis or generalized edema. Large right inguinal hernia containing cecum and small bowel without evidence for bowel obstruction. Appendix not well visualized. Right inguinal hernia extends into the scrotum with free fluid or hydrocele. Correlate with focal symptoms to assess for strangulation. Small left inguinal hernia containing small bowel without evidence for small bowel obstruction. Moderate stool throughout the colon with mild distention of the rectum. 2.4 cm indeterminate mass in the right hepatic lobe. Recommend follow-up. Small cyst in the left hepatic lobe. Electronically Signed: Crystal Huff MD at 15:31 EDT Reading Location ID and State: [facility] / [place] Tel , Service support , D/C Instructions Discharge Diet: No restrictions Weight Bearing Status: Full weight bearing Meaningful Use Info Meaningful Use Diagnoses (Choose all that apply): None applicable Discharge Plan Admission Admit Date/Time: 01/22/23 21:56 Primary Reason for Your Visit: pancreatitis Attending Provider: Danielito Owens Primary Care Provider: Espinoza Gottlieb Chi Consulting Providers: Nilton Devlin ; Thomas Stover Discharge Orders/Prescriptions Prescriptions: No Action NK Referrals / Follow Up: Nilton Devlin MD [Med Staff - Active Staff] - See Referral Note (as scheduled) Espinoza Gottlieb Chi, MD [Primary Care Provider] - Within 2 Weeks Emigdio Fuller MD [Med Staff - Sewing Department Supervisor] - See Referral Note (within 3 weeks) Disposition Disposition (needs filled in before D/C Order can be placed): Home, Self Care Charges/Coding Visit Charges Inpatient E&M: 61885 Subs Hosp L2
[2023-01-23 16:52] VITALS: BP 94/58; PULSE 58; RESP 18; TEMP 36.8; O2SAT 97
[2023-01-24 07:08] LABS: HEPATITIS B SURFACE AG Negative (Negative); Hep C Antibodies Non Reactive (Non Reactive); Hepatitis A IgM Antibody Negative (Negative); Hepatitis B Core AB IgM Negative (Negative)
== END 2023-01-23 17:03 | disposition home or self-care (01) | DRG 440 ==
LOC: ED 21:58 → MS3 22:31
PROVIDERS: Admitting Provider Hospitalist; Emergency Provider Student in an Organized Health Care Education/Training Program; PCP Family Medicine Geriatric Medicine; Visit Provider Internal Medicine
DX: K85.10 Biliary acute pancreatitis without necrosis or infection (principal); K80.70 Calculus of gallbladder and bile duct without cholecystitis without obstruction; F03.90 Unspecified dementia, unspecified severity, without behavioral disturbance, psychotic disturbance, mood disturbance, and anxiety; K76.89 Other specified diseases of liver; D64.9 Anemia, unspecified; R16.0 Hepatomegaly, not elsewhere classified
CPT/HCPCS: 36415; 74178; 74181; 76705; 80053; 80074; 81001; 83690; 85025; 99284; J7030; J7120; Q9967; A4216

== ENCOUNTER 2023-02-03 09:45 | Day surgery (SDC) | payer MEDICARE, SELFPAY ==
[2023-02-03] VITALS (7 sets, daily range): BP systolic 116–149; BP diastolic 50–99; PULSE 51–74; RESP 16; TEMP 36.4–36.8; O2SAT 96–100; BMI 21.3
--- NOTE | 2023-02-03 09:54 | EKG12_ITS ---
Test Reason : PRE OP Blood Pressure : / mmHG Vent. Rate : 050 BPM Atrial Rate : 050 BPM P-R Int : 154 ms QRS Dur : 086 ms QT Int : 440 ms P-R-T Axes : 040 069 060 degrees QTc Int : 401 ms Sinus bradycardia Otherwise normal ECG No previous ECGs available Confirmed by LUCI MENDOZA, RUBINA ([id number]), editor news DEISI BERG ([id number]) on 02/05/2023 9:18:28 AM Referred By: Nilton Devlin Confirmed By:RUBINA VERMA MD
--- NOTE | 2023-02-03 09:54 | HP.PCM_ITS ---
History and Physical Date of Admission: 02/03/23 Intake Vital Signs ? 01/22/2323:37 01/29/2309:46 Height 30 in 5 ft 6 in Weight: ? 136 lb 8 oz BMI ? 22.0 BP ? 122/73 H Blood Pressure Location ? Rt brachial Position ? Sitting Respiration ? 16 Pulse ? 91 Pulse Source ? Monitor Temp ? 97.1 F L Temp Source ? Temporal Pulse Oximetry (%) ? 99 Oxygen Delivery Method ? room air Intake Visit Reasons:?GALLBLADDER/HERNIA Chief Complaint: gallbladder Allergies No Known Allergies Allergy (Verified 01/22/23 16:41) Medications multivitamin 1 tab PO DAILY 01/29/23 [History Confirmed 01/29/23] vitamin B complex (B Complex-Vitamin B12 tablet) 1 tab PO DAILY 01/29/23 [History Confirmed 01/29/23] PFSH Surgical History? History of tonsillectomy Social History? Smoking Status:? Never smoker HPI HPI HPI: Patient is an 82-year-old male here for following up from gallstone pancreatitis.? He has no abdominal pain at this time.? He denies any other symptoms at this time. ROS General General: No weight change or fatigue HEENT HEENT: No difficulty swallowing Endo Endocrine: No thyroid disease Musc Musculoskeletal: No back problems or arthritis Cardio Cardiovascular: No pacemaker, heart disease, atrial fibrillation, high blood pressure, heart attack, heart stent, palpitations or chest pain Psych Psychiatric: No depression or anxiety Resp Respiratory: No shortness of breath, No cough, No COPD, No asthma and No emphysema Gastro Gastrointestinal: No abdominal pain, No nausea or vomiting, No diarrhea, No constipation, No blood in stool, No acid reflux, No hemorrhoids, No ulcers, No gallbladder problem and No black,tarry stools Richy Hematologic: No blood thinners Exam Const General: cooperative Orientation: alert and oriented x3 HENMT Head: normal to inspection Neck Neck: normal visual inspection and full ROM Chest Chest palpation & inspection: normal inspection of the chest Resp Effort & Inspection: normal respiratory effort Auscultation: clear to auscultation bilaterally Cardio Rate: regular rate Rhythm: regular rhythm GI Inspection: non-distended Palpation: soft and nontender Skin General: no rashes or lesions noted Neuro General: patient alert and patient oriented x3 Extrem General: full ROM Psych Appearance: grossly normal Mental Status: mental status grossly normal Assessment and Plan Assessment and Plan (1) Pancreatitis, gallstone: ?Status:?Acute ?Plan: The patient had MRCP and ultrasound do not show any gallstones but the CT scan shows gallstones.? Patient also had pancreatitis with mildly elevated LFTs.? I will perform laparoscopic cholecystectomy with cholangiogram for the patient.? Patient is having his liver mass worked up with an MRI next month and the work- up is being done by his PCP. I discussed the procedure in detail with the patient.? I discussed the risks, benefits, and alternatives of the procedure.? I discussed the risks including but not limited to bleeding, infection, injury to surrounding organs such as the liver, bile duct, bowels.? I did discuss the possibility of having to convert to an open procedure as well as the possibility that if any injuries occurred this may necessitate further surgery at a tertiary care center. Nilton Devlin MD Pager: [facility] [address] [place] [address], [address] [place] [address] Office: I have examined the patient and the H&P has been reviewed. There are no clinical changes since date of exam.
[2023-02-03] MEDS: Lactated Ringers 1,000 ML 15 ML IV ×2 (10:16→15:53)
--- NOTE | 2023-02-03 11:30 | GALL_PTH ---
PATIENT: DENNISE NUNEZ LOC: [facility] U#:[id number] AGE/SX: 82/M ROOM: RE02/03/[address]: Dr. Nilton Devlin MD : [id number] BED: DIS: 02/03/2023 SPEC #: [id number] RECD: 02/03/23 17:05 STATUS: DASHA REKarrie #: [id number] CHIQUI: 02/03/23 11:[address]: Nilton Devlin DEPT: SURGICAL PATHOLOGY RECD BY: Chris Mathews ENTERED: 02/04/23 09:22 SP TYPE: JARETH MAE DR: Dr. Matt Montero MD Tissues: Gallbladder, NOS Procedures: Surgery Specimen Level III HEADER OPERATION: Laparoscopic cholecystectomy with IOC PRE-OP DIAGNOSIS: Pancreatitis, gallstone TISSUE SUBMITTED: Gallbladder MICROSCOPIC DIAGNOSIS Gallbladder, cholecystectomy: Chronic cholecystitis. AM:jun 02/05/2023 MICROSCOPIC DESCRIPTION Slides are reviewed. GROSS DESCRIPTION Received is one container labeled with the patient's name and designated gallbladder. The specimen consists of a gallbladder measuring 7.5 x 3.5 x 3.0 cm. The external surface is smooth and glistening. Focally, it is granular, hemorrhagic and contains cautery artifact. The lumen of the gallbladder contains yellow-green mucoid bile and no calculi. The mucosa is bile-stained and without any mass lesions. The gallbladder wall averages 0.2 cm in thickness and is free of mass lesions. Promotional Representative sections of the gallbladder and the cystic duct at margin of resection are submitted in one cassette. / AM:jun 02/04/2023 TC:3 [facility]: [id number]
--- NOTE | 2023-02-03 13:24 | SUR.PREOP ---
FAMILY AND PATIENT KEPT UP TO DATE ON THE SURGERY DELAY. DR. DAVID JUST CAME OUT SO I LET THEM KNOW THAT THEY SHOULD BE GETTING THE ROOM READY. A GIFT CERTIFICATE GIVEN FOR 5 DOLLARS TO [facility] OR [facility].
[2023-02-03] MEDS: Cefotetan 2 GM in 0.9% NS 100 ML IV (13:57)
--- NOTE | 2023-02-03 14:00 | RAD_ITS ---
INTRAOPERATIVE CHOLANGIOGRAM INDICATION: LAP VALERIE WITH IOC EXAMINATION/TECHNIQUE: 1 intraoperative cine clip is present in the evaluation. Total Fluoroscopic Time: 15.4 seconds. Radiation dosage index: 4.29 mGy COMPARISON: CT abdomen/pelvis without contrast from January 23, 2023. MRCP from January 23, 2023. FINDINGS: No filling defects are identified. There is no biliary ductal dilatation. There is free passage into the duodenum. RAD/Cholangiogram/ O R,Initial IMPRESSION: Negative intraoperative cholangiogram. Please see intraoperative report for detailed findings. Electronically Signed: Albino Caldwell MD at 15:52 EDT ,
[2023-02-03] MEDS: Bupivacaine 0.25% 30 ML Vial (14:43)
--- NOTE | 2023-02-03 14:54 | PCM.OPRPT ---
Report of Operation Date of Procedure: 02/03/23 Pre-Operative Diagnosis: History of gallstone pancreatitis Post-Operative Diagnosis: Same Surgery/Procedure Performed:: Laparoscopic cholecystectomy with cholangiogram Specimen's removed: Gallbladder Description of Procedure: After obtaining informed consent patient was brought back to the operating room. General anesthesia was induced. The abdomen was prepped and draped in usual sterile fashion. A small midline incision was made superior to the umbilicus and deepened to the level of fascia. The fascia was elevated and incised. Next the peritoneum was elevated and incised in the same fashion. Finger sweep was performed and the Bustillo trocar was placed into the abdomen. The balloon was inflated. The abdomen was inflated to 15 mmHg. Next a camera was introduced into the abdomen and the abdomen was inspected. Next under direct visualization three 5-mm ports were placed one subxiphoid and 2 subcostal. Next the gallbladder was elevated and retracted toward the right shoulder. The peritoneum was stripped from the gallbladder. The infundibulum was located and retracted laterally. Next the triangle of Calot was dissected and the cystic duct and cystic artery were identified. Cholangiograms were performed. The Borrero clamp was used to clamp across the infundibulum and the catheter needle was inserted into the gallbladder. Under fluoroscopy contrast was instilled into the gallbladder and the common duct, cystic duct as well as proximal hepatic ducts were identified. There was good filling of the duodenum. There were no filling defects noted in the common bile duct. The clamp was removed as well as the needle and the infundibulum was grasped once more. Three hemolock clips were placed across the cystic duct. The cystic duct was then divided leaving 2 clips on the stump. The cystic artery was clipped and divided in the same fashion. The hook cautery was then used to take the gallbladder off of the gallbladder bed. Hemostasis was obtained. Gallbladder fossa was irrigated and no active bleeding or bile leakage was noted. Next the camera was introduced in the subxiphoid port. An Endopouch bag was placed through the umbilical port and the gallbladder was placed into it. The gallbladder was then removed through the umbilical incision. The camera was then reinserted through the umbilical port. The gallbladder fossa was inspected once more and noted to be hemostatic with no leaking bile. The abdomen was suctioned dry. The 5 mm ports were removed under direct visualization. The umbilical port was then removed and the air was removed from the abdomen. Next using an 0 Vicryl suture the umbilical fascia was closed in a [id number] fashion. The umbilical port site was irrigated local anesthetic was administered to all the incisions. All the incisions were closed with interrupted subcuticular 4-0 Monocryl sutures followed by Steri-Strips and dressings. The patient was awoken and taken to PACU in stable condition. Admit VTE Documentation VTE Mechan Device Prophylaxis: SCD's
--- NOTE | 2023-02-03 14:54 | EX.PCM.DISCH ---
Discharge Instructions Procedure Gallbladder Diet Discharge Diet: Light diet - advance as tolerated Activity Discharge Activity: May Not Drive (for 2-3 days or while taking narcotic pain medications.) and - (Do not drive, work heavy equipment or sign legal documents for 24 hours.) May shower in (days): 1 Lifting Restrictions: 20 lbs for 2 weeks Additional Activity Instructions:: Pain medication may cause nausea. You should typically eat light foods as you take your pain medications. Pain medication may also cause constipation. If this is a problem for you, please discuss with your doctor. Dressing / Incision Call your doctor if your incision/area has: Continuous Slow Oozing, Sudden Increased Bleeding, Increased Pain/ Swelling, Increased Redness and Foul Smelling Discharge Call your doctor if you observe: Fever of 101 or Higher Suture Line Care: Avoid Pulling/Pushing and Avoid Pinching/Bending Remove Dressing in: 2 days Additional Dressing/Incision Instructions:: Leave operative bandaids on for 2 days. When you remove dressing, leave Steri-Strips on until your follow-up appointment, or until the Steri-Strips fall off on their own. Follow Up Care Please Follow Up With: Nilton Devlin MD When: Please call to schedule 2 week follow up appointment. [phone] Test Results: Test results from this visit will be discussed in further detail at your follow-up appointment, if applicable. Discharge Plan Admission Attending Provider: Nilton Devlin Primary Care Provider: Matt Montero Instructions Additional Instructions / Restrictions: Ibuprofen and Tylenol for pain, oxycodone for breakthrough pain. Discharge Orders/Prescriptions Prescriptions: New oxycodone 5 mg tablet 5 - 10 mg PO Q6H PRN (Reason: pain) 5 Days Qty: 20 0RF No Action multivitamin Tablet 1 tab PO DAILY vitamin B complex [B Complex-Vitamin B12] Tablet 1 tab PO DAILY Referrals / Follow Up: Matt Montero MD [Primary Care Provider] - Disposition Disposition (needs filled in before D/C Order can be placed): Home, Self Care
[2023-02-03] MEDS: Acetaminophen 500 MG Tablet 1000 MG PO (16:28)
== END 2023-02-03 17:19 | disposition home or self-care (01) ==
LOC: SDC 09:45 → AC 09:47
PROVIDERS: PCP Family Medicine; Referring Provider Surgery; Visit Provider Surgery
PROC: (CPT 47610; principal; 2023-02-03 11:10)
DX: K80.10 Calculus of gallbladder with chronic cholecystitis without obstruction (principal); K85.90 Acute pancreatitis without necrosis or infection, unspecified
CPT/HCPCS: 47563; 00790; 74300; 76000; 88304; 93005; J7120; J2405